=== PATIENT | female | born 1940 | race Hispanic/Latino ===

== ENCOUNTER 2021-02-04 12:49 | Outpatient (CLI) | payer MEDICARE, OTHER ==
--- NOTE | 2021-02-04 14:12 | Ultrasound Report ---
ULTRASOUND BREAST RIGHT LIMITED, 02/04/2021 CLINICAL INFORMATION / INDICATION: PERSONAL HX OF BREAST CA. Right breast pain. TECHNIQUE: Targeted ultrasound evaluation was performed of the area of interest. COMPARISON: Right breast mammogram 05/23/20. FINDINGS: There is no evidence of a cystic or solid mass. No posterior shadowing or distortion are seen. There is no evidence of ductal ectasia. There are a couple of benign-appearing right axillary lymph nodes, the largest of which measures 5.8 mm short axis. IMPRESSION: No sonographic evidence of malignancy. Follow up recommendation: Routine yearly BI-RADS Category 2: Benign. A normal or "negative" report should not preclude biopsy or follow-up of a clinically suspicious find ing. Signer Name: Robin Lowry MD Signed: 02/04/2021 1:25 PM Workstation Name: [email or web address]
== END 2021-02-04 12:50 | disposition home or self-care (01) ==
LOC: SPVWC 12:49
PROVIDERS: ATTEND Surgery
DX: R92.8 Other abnormal and inconclusive findings on diagnostic imaging of breast (principal); Z85.3 Personal history of malignant neoplasm of breast

== ENCOUNTER 2021-04-06 12:27 | Outpatient (CLI) | payer MEDICARE, OTHER ==
--- NOTE | 2021-04-06 13:39 | Mammography Report ---
DIGITAL DIAGNOSTIC MAMMOGRAM WITH CAD CONVENTIONAL, 04/06/2021 CLINICAL INFORMATION / INDICATION: Patient has a history of left breast cancer status post left maste ctomy. Patient reports focal pain in the right breast. Patient had a targeted ultrasound of this area performed in January 2021 which revealed benign findings. MASTODYNIA N64.4/ PERSONAL HX OF BREAST CA TECHNIQUE: Digital right mammographic imaging was performed. This examination was interpreted with the benefit of Computer-aided Detection analysis. COMPARISON: Prior mammograms 05/23/2020 and 05/22/2019, and right breast ultrasound 02/04/2021 FINDINGS: Breast Density: The breasts are heterogeneously dense, which may obscure small masses. No dominant mass, suspicious calcifications or architectural distortion in the right breast. There has been no significant change compared with the prior examinations. IMPRESSION: 1. No suspicious mammographic abnormality identified in the right breast. There is no mammographic ab normality to account for right breast pain, therefore clinical correlation is recommended. Follow up recommendation: Routine yearly BI-RADS Category 1: Negative. A "normal" or negative report should not discourage follow up or biopsy of a clinically significant f inding. A written summary of these findings will be mailed to the patient. The patient will be entered into a mammography reporting system which will generate a reminder letter for the patient's next appointmen t at the appropriate interval. According to the [employer], yearly mammograms are recommended starting at age 40 and continuing as long as a woman is in good health. Breast MRI is recommended for women with an kristin roximately 20-25% or greater lifetime risk of breast cancer, including women with a strong family his tory of breast or ovarian cancer and women who have been treated for Hodgkin's disease. Signer Name: Yen Martinez MD Signed: 04/06/2021 1:35 PM Workstation Name: [email or web address]
== END 2021-04-06 12:28 | disposition home or self-care (01) ==
LOC: SPVWC 12:27
PROVIDERS: ATTEND Surgery
DX: N64.4 Mastodynia (principal); Z85.3 Personal history of malignant neoplasm of breast

== ENCOUNTER 2021-07-16 13:52 | Outpatient (CLI) | payer MEDICARE, OTHER ==
--- NOTE | 2021-07-17 08:09 | Mammography Report ---
. DIGITAL SCREENING MAMMOGRAM WITH TOMOSYNTHESIS WITH CAD, 07/17/2021 CLINICAL INFORMATION / INDICATION: Routine Screening Mammography. TECHNIQUE: Digital right 2D and 3D mammography with tomosynthesis was obtained in the craniocaudal a nd mediolateral oblique projections. Computer-Aided Detection (CAD) analysis was used for interpreta tion of this study. COMPARISON: 05/23/2020 FINDINGS: Breast Density: The breasts are heterogeneously dense, which may obscure small masses. No dominant mass, suspicious calcifications, or architectural distortion in the right breast. Largely unchanged nodular densities in the breasts, commonly fibroglandular or fibrocystic change. IMPRESSION: No mammographic evidence of malignancy. Follow up recommendation: Routine yearly BI-RADS Category 2: Benign. A "normal" or negative report should not discourage follow up or biopsy of a clinically significant f inding. A written summary of these findings will be mailed to the patient. The patient will be entered into a mammography reporting system which will generate a reminder letter for the patient's next appointmen t at the appropriate interval. The [employer] recommends yearly mammograms starting at age 40 and continuing as l keenan as a woman is in good health. Breast MRI is recommended for women with an approximate 20-25% or greater lifetime risk of breast cancer, including women with a strong family history of breast or ova soledad cancer or who have been treated for Hodgkin's disease. Signer Name: Lito Castellon MD Signed: 07/17/2021 8:04 AM Workstation Name: [email or web address]
== END 2021-07-16 13:53 | disposition home or self-care (01) ==
LOC: SPVWC 13:52
PROVIDERS: ATTEND Surgery
DX: Z12.31 Encounter for screening mammogram for malignant neoplasm of breast (principal); N64.89 Other specified disorders of breast